=== PATIENT | female | born 1940 | race Caucasian/White ===

== ENCOUNTER 2019-12-23 11:45 | Inpatient (IN) | payer MEDICARE ==
[~2019-12-23] VITALS: Ht 167.6 cm; Wt 94.8 kg
[~2019-12-23 11:45] MED LIST: ACET65TA OR; ASPI325T OR; CALCCHW12 OR; LISI20TA5 OR; METO50TA4 OR; MULTIVIT PO; SOMA350T OR; VICO5TAB OR; VIT; VITAMIN; VITAMIN E PO
[2019-12-30] MEDS ORDERED: [UNRECOGNIZED DRUG - CODE] PO (09:26)
[2019-12-30] MEDS ORDERED: MAPA325T8 PO (09:26)
[2019-12-30] MEDS ORDERED: XARE20TA PO (09:26)
[2019-12-30] MEDS ORDERED: MULTCAP PO (09:26)
[2019-12-30] MEDS ORDERED: ATOR1TAB21 PO (09:26)
[2019-12-30] MEDS ORDERED: ATEN50TA2 PO (09:26)
[2019-12-30] MEDS ORDERED: LISI10TA15 PO (09:26)
[2019-12-30] MEDS ORDERED: D31000TA2 PO (09:33)
[2020-01-06] MEDS ORDERED: ceFAZolin 2 GM/D5W 50 ML IV BAG (J0690 PER 500MG) As Ordered ONE ×3 (07:00→23:58)
[2020-01-06] MEDS ORDERED: oxyCODONE 5MG TAB ONE (07:00)
[2020-01-06] MEDS ORDERED: MIDAZOLAM INJ 2MG/2ML VIAL (J2250 PER 1MG) ONE (07:00)
[2020-01-06] MEDS ORDERED: ceFAZolin 2 GM/D5W 50 ML IV BAG (J0690 PER 500MG) ONE ×3 (07:00→23:58)
[2020-01-06] MEDS ORDERED: fentaNYL 100 MCG/2 ML INJECTION (J3010) ONE (07:00)
[2020-01-06] MEDS ORDERED: MIDAZOLAM INJ 2MG/2ML VIAL (J2250 PER 1MG) As Ordered ONE ×2 (07:19→08:30)
[2020-01-06] MEDS ORDERED: fentaNYL 100 MCG/2 ML INJECTION (J3010) As Ordered ONE ×2 (07:19→08:30)
[2020-01-06] MEDS ORDERED: TRANEXAMIC ACID 100 MG/ML 10ML VIAL As Ordered ONE (07:20)
[2020-01-06] MEDS ORDERED: ceFAZolin 1GM VIAL (J0690 PER 500MG) As Ordered ONE (07:20)
[2020-01-06] MEDS ORDERED: EPINEPHrine INJ 1 MG/ML 1ML AMP As Ordered ONE (07:21)
[2020-01-06] MEDS ORDERED: BUPIVACAINE LIPOSOME/PF 1.3% 20ML VIAL (13.3MG/ML)(EXPAREL)(C9290 PER1MG) As Ordered ONE (07:21)
[2020-01-06] MEDS ORDERED: ONDANSETRON 4MG/2ML VIAL As Ordered ONE (08:30)
[2020-01-06] MEDS ORDERED: propofoL 500 MG/50 ML VIAL As Ordered ONE (08:30)
[2020-01-06] MEDS ORDERED: LIDOCAINE 2% 100MG/5ML SDV (FOR ANES.) As Ordered ONE (08:30)
[2020-01-06] MEDS ORDERED: ROCURONIUM BROMIDE 50 MG/5 ML VIAL As Ordered ONE (08:30)
[2020-01-06] MEDS ORDERED: HYDROmorphone HCL 2 MG/ML 1ML VIAL (J1170) As Ordered ONE (08:30)
[2020-01-06] MEDS ORDERED: dexameTHASONE 4 MG/ML 1ML VIAL (J1100 PER 1MG) As Ordered ONE (08:30)
[2020-01-06] MEDS ORDERED: PHENYLephrine HCL 500 MCG/5 ML (100MCG/ML) SYRINGE (J2370) As Ordered ONE ×2 (08:30→09:05)
[2020-01-06] MEDS ORDERED: SUGAMMADEX SODIUM 500 MG/5 ML VIAL (BRIDION) As Ordered ONE (08:31)
[2020-01-06] MEDS ORDERED: propofoL 200 MG/20 ML VIAL As Ordered ONE (08:59)
[2020-01-06] MEDS ORDERED: ACETAMINOPHEN 1000MG 100ML IV BTL (OFIRMEV) (J0131 PER 10MG) As Ordered ONE (09:18)
[2020-01-06] MEDS ORDERED: oxyCODONE 5MG TAB As Ordered ONE (10:04)
[2020-01-06] MEDS ORDERED: ROPIvacaine 0.5% 30ML INJECTION (J2795 PER 1MG) ONE (13:00)
[2020-01-06] MEDS ORDERED: dexameTHASONE 10MG/1ML VIAL PRES.FREE (J1100 PER 1MG) ONE (13:00)
[2020-01-06] MEDS ORDERED: ATORVASTATIN 20 MG TAB ONE (20:58)
[2020-01-06] MEDS ORDERED: ACETAMINOPHEN TAB 650MG DOSE (2X325MG) ONE (20:58)
[2020-01-06] MEDS ORDERED: ATORVASTATIN 20 MG TAB As Ordered ONE (20:58)
[2020-01-06] MEDS ORDERED: ACETAMINOPHEN TAB 650MG DOSE (2X325MG) As Ordered ONE (20:59)
[2020-01-07] MEDS ORDERED: hydroCHLOROthiazide 12.5 MG CAPSULE As Ordered ONE (09:14)
[2020-01-07] MEDS ORDERED: MULTIVITAMINS/MINERALS THERAP 1 TAB As Ordered ONE (09:14)
[2020-01-07] MEDS ORDERED: MULTIVITAMINS/MINERALS THERAP 1 TAB ONE (09:14)
[2020-01-07] MEDS ORDERED: atenoloL 50 MG TAB As Ordered ONE (09:14)
[2020-01-07] MEDS ORDERED: PERCOCET 5MG/325MG TAB ONE (09:14)
[2020-01-07] MEDS ORDERED: PERCOCET 5MG/325MG TAB As Ordered ONE (09:15)
[2020-01-07] MEDS ORDERED: lisinopriL 10 MG TAB As Ordered ONE (09:15)
[2020-01-07] MEDS ORDERED: MIRALAX *UNIT DOSE* 17GM PACKET As Ordered ONE (10:57)
[2020-01-07] MEDS ORDERED: MIRALAX *UNIT DOSE* 17GM PACKET ONE (10:57)
[2020-02-02 22:42] LABS: BLOOD UREA NITROGEN 15 MG/DL (7-18); CALCIUM LEVEL 8.2 MG/DL (8.8-10.2); CARBON DIOXIDE LEVEL 27 MEQ/L (21-32); CHLORIDE LEVEL 106 MEQ/L (98-107); CHOLESTEROL LEVEL 86 MG/DL (<200); CHOLESTEROL RISK RATIO 1.755 (<5); CREATININE FOR GFR 0.94 MG/DL (0.55-1.30); GLOMERULAR FILTRATION RATE > 60.0 (>39); GLUCOSE, FASTING 182 MG/DL (70-100); HDL CHOLESTEROL 49 MG/DL (>40); HEMOGLOBIN A1c 6.1 %; LDL CHOLESTEROL 23 MG/DL (<100); MAGNESIUM LEVEL 1.8 MG/DL (1.8-2.4); NON-HDL-C 37 MG/DL; SODIUM LEVEL 141 MEQ/L (136-145); THYROID STIMULATING HORMONE 0.212 uIU/ML (0.358-3.740); TRIGLYCERIDES LEVEL 69 MG/DL (<150)
--- NOTE | 2020-02-07 14:23 | REP ---
LEFT KNEE: 2-VIEWS HISTORY: Postop. This report was delayed due to a protracted episode of network disruption experienced by this facility. FINDINGS: Portable AP and cross-table lateral views of the left knee demonstrate left knee arthroplasty components in place and in good position. There is periarticular soft tissue swelling and emphysema. Anterior skin rosalba are noted. IMPRESSION: Status post left knee arthroplasty. MICHAELAD
[2020-02-17 22:28] LABS: HEMATOCRIT 35.8 % (36.0-47.0); HEMOGLOBIN 12.3 g/dl (12.0-15.5); MEAN CORPUSCULAR HGB CONC 34.4 g/dl (32.0-36.5); PLATELET COUNT, AUTOMATED 169 10^3/uL (150-450); RED BLOOD COUNT 3.73 10^6/uL (4.00-5.40); WHITE BLOOD COUNT 13.8 10^3/uL (4.0-10.0)
--- NOTE | 2020-02-27 15:53 | RO ---
DATE OF PROCEDURE: 01/06/2020 PREOPERATIVE DIAGNOSIS: Left knee osteoarthritis. POSTOPERATIVE DIAGNOSIS: Left knee osteoarthritis. OPERATION: Left total knee arthroplasty utilizing an ATTUNE rotating platform, size 5 femur, size 5 tibia, posterior stabilized size 12 polyethylene 35 patellar button. SURGEON: Rudolph Romero M.D. SOIL FERTILITY SPECIALIST: Jessica Parikh ANESTHESIA: Spinal. ESTIMATED BLOOD LOSS: 50. COMPLICATIONS: None. INDICATIONS: This is an elderly woman who has had some persistent left knee pain who wished to go ahead with surgical treatment. PROCEDURE: The patient was taken to the operating room and placed in the supine position after spinal anesthesia was induced. All areas were padded appropriately. The left knee was prepped and draped in the usual sterile fashion. Timeout was performed, tourniquet was inflated, and a longitudinal incision was made over the anterior aspect of the knee. She did have morbid obesity so this made this fairly challenging. I eventually did a medial parapatellar, arthrotomy, everted the patella, and flexed the knee up. She had severe osteophytes involving her distal femur, proximal tibia, and patella. Many of these had to be removed in order to visualize the knee. I then used the canal initiating reamer followed by the intramedullary guide set at 9 mm cut and 5 of valgus and this was pinned in place. The distal femoral cut was made protecting soft tissues and I sized the femur to be a 5. Drill holes were placed in the end of the femur, the cutting block was secured, and the remaining four cuts were made; protecting soft tissues. We then directed our attention to the tibia. The retractors were placed; the alignment guide was placed in the appropriate amount of valgus and posterior slope, pinned in place at about 2 mm off the low side and 10 off the high side. She had very sclerotic medial bone, which was difficult to get through and I had to recut this a little bit more because the blade tended to skive up. This bone was removed and then, we used a mobile plant operators to remove soft tissue and very large osteophytes. She had a large rounded osteophytes in the back of the lateral aspect of her knee that was probably in the 2 cm in diameter range. With some difficulty, I was able to remove this. I removed osteophytes and made sure the medial release was appropriate. Soft tissue was removed from both sides of the knee and then, a spacer block was then used and it felt like a size 12 was going to be appropriate for both flexion and extension. I did elect to go with the posterior stabilizer because the PCL was deficient at this point. I did use the box cutting guide, this was secured in place, and the remaining cuts were made. I then prepared the tibia. The size 5 tray fit nicely. I drilled and broached and then placed the trial components. The size 12 fit very nicely. She had excellent soft tissue balance in flexion and extension with excellent motion and alignment. The patella was then cut. I did have to remove large osteophytes from around the patella to be able to get at adequate assessment of the patella anatomy. I then freehand cut about 7 mm of bone and sized it to be a 35. The drill holes were placed and the patella tracked very nicely. The business assistant prepared the bone cement in the modern technique. I then placed the Exparel in the deep tissues. I irrigated copiously, dried the bony surfaces, and then cemented on the components placing the polyethylene and brining the knee out in extension. We had removed all excess bone cement. Cemented on the patella and held it in place with a clamp, irrigated copiously, and placed the TXA in the deep wound, then closed the deep layer with interrupted #1 Vicryl suture and running STRATAFIX irrigating again. The subQ was irrigated. The skin was closed with subQ 2-0 Vicryl and rosalba. Sterile dressing was applied and tourniquet had been deflated once the cement hardened. She was taken to the recovery room in stable condition. There were no known complications. The plan will be routine postop. The business assistant was instrumental in holding the retractors and assisting in mixing the bone cement and assisting in wound closure. This was coded as an unusually difficult procedure due to the patients morbid obesity, which made the dissection more difficult. She had severe arthritis with very large osteophytes, which added time to try to remove all of these and gain exposure. It also added to the wound closure time. Overall, significantly more difficult procedure. JENNY
--- NOTE | 2020-02-27 15:57 | IPN ---
DATE: 02/06/2020 Patient seen and examined. She wishes to go ahead with a left total knee arthroplasty. She understands the nature of the procedure, the risks of bleeding, infection, damage to nerves and/or vessels, persistent pain, wear, loosening, blood clots, medical problems, and among others. She wishes to proceed. JENNY
--- NOTE | 2020-04-01 07:15 | DS ---
DATE OF ADMISSION: 01/06/2020 DATE OF DISCHARGE: 01/07/2020 ATTENDING PHYSICIAN: Dr. Rudolph Romero ADMITTING DIAGNOSIS: Left knee osteoarthritis. OTHER DIAGNOSES: 1. Atrial fibrillation. 2. Hypertension. 3. Prediabetes. 4. Degenerative joint disease. DISCHARGE DIAGNOSIS: Left knee osteoarthritis, status post left total knee arthroplasty. HISTORY: Patient is a 79-year-old female who had progressively worsening left knee pain and stiffness. She failed to improve with conservative measures. She continued to have symptoms with weightbearing activities and activities of daily living. She consented for an elective left total knee arthroplasty with Dr. Romero for her continued symptoms. OPERATION PERFORMED: Left total knee arthroplasty. HOSPITAL COURSE: The patient underwent a left total knee arthroplasty under spinal anesthesia, which was uneventful. Her hospital course was without complication, and she was up with physical therapy per their protocol, weightbearing as tolerated on the left lower extremity. Patient was discharged on oral pain medications and will resume her preoperative medications and diet. She will use her thromboembolic deterrent stockings and take her anticoagulant postoperatively to prevent deep venous thrombosis. Patient will followup in our office in 12-14 days for a wound check and staple removal. She is encouraged to contact our office sooner if there is any increase in pain, redness, drainage, numbness or tingling in the extremity, fever greater than 101 degrees, or any other concerns. Please see medical records for additional details. kirk JangBluffton HospitalSteven
== END 2020-01-07 13:45 | disposition home or self-care (01) | DRG 470 ==
LOC: M MSPAV 01-06 06:05
PROVIDERS: ADMIT Orthopaedic Surgery; ATTEND Orthopaedic Surgery
PROC: 0SRD0J9 Replacement of Left Knee Joint with Synthetic Substitute, Cemented, Open Approach (ICD-10-PCS; principal; 2020-01-06)
DX: M17.12 Unilateral primary osteoarthritis, left knee (principal); I48.20 Chronic atrial fibrillation, unspecified; I10 Essential (primary) hypertension; R73.03 Prediabetes; M85.80 Other specified disorders of bone density and structure, unspecified site; Z98.1 Arthrodesis status; Z79.01 Long term (current) use of anticoagulants; Z79.899 Other long term (current) drug therapy

== ENCOUNTER → 2019-12-30 | Outpatient (CLI) | payer MEDICARE ==
[~2019-12-30] MED LIST changes: +ATEN50TA2 PO; +ATOR1TAB21 PO; +D31000TA2 PO; +LISI10TA15 PO; +MAPA325T8 PO; +MULTCAP PO; +XARE20TA PO; +[UNRECOGNIZED DRUG - CODE] PO
[2019-12-30 13:23] LABS: HEMATOCRIT 44.4 % (36.0-47.0); HEMOGLOBIN 15.2 g/dl (12.0-15.5); MEAN CORPUSCULAR HEMOGLOBIN 32.9 pg (27.0-33.0); MEAN CORPUSCULAR HGB CONC 34.2 g/dl (32.0-36.5); MEAN CORPUSCULAR VOLUME 96.1 fl (80.0-96.0); PLATELET COUNT, AUTOMATED 206 10^3/uL (150-450); RED BLOOD COUNT 4.62 10^6/uL (4.00-5.40); WHITE BLOOD COUNT 5.9 10^3/uL (4.0-10.0)
[2019-12-30 13:32] LABS: PROTHROMBIN TIME 22.5 SECONDS (11.8-14.0)
--- NOTE | 2019-12-30 13:46 | REP ---
Clinical: Arthritis . Comparison: 01/20/2011 . Technique: PA and lateral. Findings: The mediastinum and cardiac silhouette are normal. The lung reyes are clear and without acute consolidation, effusion, or pneumothorax. The skeletal structures are intact and normal. Impression: 1. No acute cardiopulmonary process. Electronically Signed by Trevin Rossi MD 12/30/2019 01:37 P
[2019-12-30 13:48] LABS: ALBUMIN 3.7 GM/DL (3.2-5.2); BILIRUBIN,TOTAL 2.1 MG/DL (0.2-1.0); CALCIUM LEVEL 9.2 MG/DL (8.8-10.2); CREATININE FOR GFR 0.97 MG/DL (0.55-1.30); GLOMERULAR FILTRATION RATE 59.1 (>39); POTASSIUM SERUM 4.1 MEQ/L (3.5-5.1); TOTAL PROTEIN 7.8 GM/DL (6.4-8.2)
[2019-12-30 14:06] LABS: ERYTHROCYTE SEDIMENTATION RATE 10 mm/hr (0-30)
== END ==
LOC: M LAB 12:34
PROVIDERS: ATTEND Orthopaedic Surgery
DX: M17.12 Unilateral primary osteoarthritis, left knee (principal); Z79.899 Other long term (current) drug therapy

== ENCOUNTER → 2020-01-01 | Outpatient (CLI) | payer MEDICARE | LOC: M LABSMTC 11:32 | PROVIDERS: ATTEND Anesthesiology | DX: Z01.818 Encounter for other preprocedural examination (principal); Z11.59 Encounter for screening for other viral diseases; Z20.828 Contact with and (suspected) exposure to other viral communicable diseases ==

== ENCOUNTER → 2020-11-30 | Outpatient (REF) | payer MEDICARE | LOC: M LAB REF 16:28 | PROVIDERS: ATTEND Internal Medicine | DX: R94.5 Abnormal results of liver function studies (principal); K76.9 Liver disease, unspecified ==

== ENCOUNTER 2023-10-20 20:27 | Emergency (ER) | payer MEDICARE ==
[~2023-10-20] VITALS: Ht 170.2 cm; Wt 92.8 kg
[~2023-10-20 20:27] MED LIST changes: -D31000TA2 PO; -LISI10TA15 PO; +LISI10TA24 PO; +VITA100093 PO
[2023-10-20 21:15] LABS: BASO % 0.2 % (0.0-1.0); HEMATOCRIT 38.9 % (36.0-47.0); HEMOGLOBIN 14.1 g/dl (12.0-15.5); LYMPH # 0.3 10^3/uL (1.5-5.0); LYMPH % 2.5 % (24.0-44.0); MEAN CORPUSCULAR HEMOGLOBIN 33.8 pg (27.0-33.0); MEAN CORPUSCULAR HGB CONC 36.2 g/dl (32.0-36.5); MEAN CORPUSCULAR VOLUME 93.3 fl (80.0-96.0); MONO # 0.7 10^3/uL (0.0-0.8); MONO % 5.8 % (2.0-8.0); NEUTROPHILS # 11.6 10^3/uL (1.5-8.5); PLATELET COUNT, AUTOMATED 134 10^3/uL (150-450); RED BLOOD COUNT 4.17 10^6/uL (4.00-5.40); WHITE BLOOD COUNT 12.8 10^3/uL (4.0-10.0)
[2023-10-20] MEDS: NS 1,000 ML IV ONE (21:39)
[2023-10-20 21:45] LABS: PROCALCITONIN 3.87 ng/ml
[2023-10-20] MEDS: ACETAMINOPHEN TAB 650MG DOSE (2X325MG) PO ONE (21:51)
[2023-10-20] MEDS: PIPERACILLIN/TAZOBACTAM SOD 4.5 GM in D5W MINI-BAG PLUS 50 ML IV ONE (21:51)
[2023-10-20 22:49] LABS: CK-MB VALUE MASS 5.7 NG/ML (<3.6)
[2023-10-20 22:50] LABS: ALBUMIN 2.7 G/DL (3.2-5.2); ALKALINE PHOSPHATASE 114 U/L (46-116); ALT/SGPT 59 U/L (7.0-40); AST/SGOT 63 U/L (<34); BILIRUBIN,DIRECT 0.8 MG/DL (<0.4); BILIRUBIN,TOTAL 4.5 MG/DL (0.3-1.2); BLOOD UREA NITROGEN 20 MG/DL (9-23); CALCIUM LEVEL 8.4 MG/DL (8.3-10.6); CARBON DIOXIDE LEVEL 22 MMOL/L (20-31); CHLORIDE LEVEL 102 MMOL/L (98-107); GLOMERULAR FILTRATION RATE > 60.0 (>32); GLUCOSE, FASTING 211 MG/DL (74-106); POTASSIUM SERUM 3.1 MMOL/L (3.5-5.1); SODIUM LEVEL 135 MMOL/L (136-145); TOTAL PROTEIN 6.4 G/DL (5.7-8.2)
[2023-10-20 22:52] LABS: THYROID STIMULATING HORMONE 0.444 uIU/ML (0.55-4.78)
[2023-10-20 23:02] LABS: CPK CREATINE PHOSPHOKINASE 1379 U/L (34-145); MB/CK RELATIVE INDEX 0.41 (< OR =4)
[2023-10-21] MEDS: NS 1,000 ML IV ONE ×3 (00:15→06:53)
[2023-10-21] MEDS ORDERED: ISOVUE-370 76% 100ML VIAL As Ordered ONE (01:17)
[2023-10-21 01:40] LABS: VENOUS BASE EXCESS -3.6 (-2.0-2.0); VENOUS HCO3 20.4 MMOL/L (23.0-27.0); VENOUS O2 SATURATION 87.9 % (60.0-80.0); VENOUS PARTIAL PRESSURE CO2 33.7 mmHg (38.0-50.0); VENOUS PARTIAL PRESSURE O2 53.2 mmHg (30.0-50.0); VENOUS STANDARD HCO3 21.3 MMOL/L; VENOUS TOTAL CO2 21.4 MMOL/L (24.0-28.0)
[2023-10-21 02:01] LABS: MB/CK RELATIVE INDEX 0.52 (< OR =4)
[2023-10-21] MEDS: NS 780 ML in IV 1 EA IV ONE (02:15)
[2023-10-21] MEDS: PIPERACILLIN/TAZOBACTAM SOD 4.5 GM in D5W MINI-BAG PLUS 50 ML IV ONE (05:08)
[2023-10-21] MEDS: ACETAMINOPHEN TAB 650MG DOSE (2X325MG) PO ONE (05:17)
[2023-10-21 05:18] LABS: MB/CK RELATIVE INDEX 0.75 (< OR =4)
[2023-10-21 05:37] LABS: Trichomonas vaginalis (AMP) NOT DETECTED (NEGATIVE)
[2023-10-21 06:01] LABS: GC DNA AMPLIFICATION NEGATIVE (NEGATIVE)
[2023-10-21] MEDS: IBUPROFEN 800 MG TAB PO ONE (06:53)
[2023-10-21] MEDS: NOREPINEPHRINE 4MG IN D5 250ML 4 MG in IV 1 EA IV SCH (08:11)
[2023-10-21] MEDS: NS 1,000 ML IV SCH (08:11)
[2023-10-21 10:54] VITALS: BP 96/52
== END 2023-10-21 11:00 | disposition short-term general hospital (02) ==
LOC: M ED 20:27 → EDBD 20:27 → M ED 10-21 11:00
DX: K80.33 Calculus of bile duct with acute cholangitis with obstruction (principal); A41.9 Sepsis, unspecified organism; M62.82 Rhabdomyolysis; I48.91 Unspecified atrial fibrillation; I44.7 Left bundle-branch block, unspecified; I10 Essential (primary) hypertension; E78.5 Hyperlipidemia, unspecified; Z79.1 Long term (current) use of non-steroidal anti-inflammatories (NSAID); Z79.810 Long term (current) use of selective estrogen receptor modulators (SERMs); Z79.899 Other long term (current) drug therapy
CPT/HCPCS: 70450; 71045; 71260; 72125; 72131; 74177; 76705; 80048; 80076; 81001; 82550; 82553; 82803; 83605; 84145; 84443; 84484; 85025; 87040; 87070; 87077; 87186; 87210; 87486; 87507; 87581; 87633; 87661; 87798; 87810; 87850; 93005; 93041; 94760; 96361; 96365; 96366; 99285; J2543; Q9967